=== PATIENT | male | born 2000 | race Caucasian/White ===

== ENCOUNTER 2023-12-03 15:28 | Emergency (ER) | payer BC, SELFPAY ==
[2023-12-03 15:34] VITALS: BP 146/78
--- NOTE | 2023-12-03 15:52 | ED.GENMED ---
History of Present Illness
General
Chief Complaint: Skin Surface Trauma
Source: patient
Exam Limitations: none
Time Seen by Provider: 12/03/23 15:51
Nursing documentation reviewed up to this point in time: agreed with
History of Present Illness
History of Present Illness:
This is a 23-year-old male with no past medical history presenting emergency department today with concerns of a laceration to his right middle finger. Patient reports that he was working today and throwing some things in the dumpster when he
caught his finger between the item and the dumpster and subsequently cut his finger. Patient states that he is fully able to range his finger and has no pain at this time. Patient states that the bleeding is now controlled. Patient states that he
is not up-to-date on his tetanus vaccination. Patient denies any other injuries at this time, denies any wrist or elbow pain, denies any falls. Patient is right hand dominant. Patient has no medication allergies.
Review of Systems
Review of Systems
All Other Systems: ROS reviewed and negative except as documented in HPI and ROS
Phy Exam
Physical Exam
Physical Exam:
General: Patient is well appearing and in no acute distress; non-toxic
Skin: Warm and dry, there is a 3 cm curved laceration on the posterior surface of the right 3rd finger extending to the lateral surface. Brisk capillary refill.
Head: Normocephalic, atraumatic
Eyes: Sclera non-icteric. EOMs intact.
Cardiac: Regular rate
Pulm: Normal respiratory effort
Musculoskeletal: 5/5 strength in bilateral upper extremities. No obvious deformity of the right third finger. No flexion deformity. No bony tenderness to palpation. No tendon involvement.
Neuro: CN II-XII intact, no focal neurologic deficits. Sensation intact to light touch bilaterally.
Psychiatric: Appropriate mood and affect.
Course
Orders/Labs/Results
Orders:
Orders
12/03/23 15:38
CR Hand - Right 2 Views Urgent
Comment:
Reason For Exam: lac/pain
12/03/23 16:12
Tetanus/Diphth/Acelpertussis [Adacel] 0.5 ml IM .ONCE ONE
Vital Signs
Initial and Last Documented VS:
Initial Vital Signs
Temp Pulse Resp BP Pulse Ox
98.1 F 72 16 146/78 97
12/03/23 15:34 12/03/23 15:34 12/03/23 15:34 12/03/23 15:34 12/03/23 15:34
Last Documented Vital Signs
Temp Pulse Resp BP Pulse Ox
98.1 F 72 16 146/78 97
12/03/23 15:34 12/03/23 15:34 12/03/23 15:34 12/03/23 15:34 12/03/23 15:34
Procedures
Laceration Closure
Right Middle Posterior Finger:
Status of Wound: clean
Size of Wound in cm: 3
Description of Wound Edges: sharp
Preparation: cleaned with saline
Anesthesia: 1% Lidocaine
Revision/Debridement: routine- no revision
Wound exploration: extensive cleaning of contaminated wound and explored to base- no FB
Type of Closure: single layer closure
Skin Closure Material: 4-0 prolene
Number of sutures: 7
MDM/Problems Addressed
Differential Diagnosis Includes:
ddx include finger laceration, abrasion, tendon injury
MDM/Problems Addressed:
Finger laceration:
This is a 23-year-old male with no past medical history presenting emergency department today with concerns of a laceration to his right middle finger. Patient was throwing something into the dumpster when he caught his finger between the item and
demonstrating subsequently cut his finger. Patient had his tetanus shot updated today. Patient had x-ray which was negative for any distal phalanx fracture. On physical examination, there is a 3 cm curved laceration extending from the posterior
surface of the right small finger to the lateral surface. No obvious tendon involvement, full range of motion, brisk capillary refill, sensation intact. The wound was repaired with sutures, patient tolerated procedure well. Considering the
setting of the wound was on the garbage dumpster, and the potential dirty status of the wound, patient was started prophylactically on an antibiotic. Return precautions discussed. Patient is right-hand dominant so I discussed follow-up with hand
surgery to ensure proper healing. Patient was splinted. Patient stable for discharge.
Chronic conditions affecting care:
n/a
Acute Exacerbation and/or Progression of Chronic Illness:
n/a
*Pulse Oximetry
Patient hypoxic: no
*Critical Care Note
Total Time (30-74mins, 75-104mins- exclusive of procedures): Not Applicable
Data Reviewed
Review of Other/Old Records Reveals: Records (Reviewed ER physician documentation from 03/23/2018, patient was seen for upper abdominal pain) and Discharge Summary (Discharge summary [facility] to review )
Source: patient and records
Prescriptions/Medications Considered But Not Given:
n/a
Further Testing Considered But Not Given:
n/a
Patient Management
Escalation/DeEscalation of care consider admission/obs:
Admit not indicated, patient stable for discharge, reviewed case with my attending Dr. Berumen.
ED Attending Note
-
Portions of this chart may have been created with voice recognition software.� Occasional wrong word or��sound alike� substitutions may have occurred due to the inherent limitations of voice recognition software.
Discharge Plan
Departure
Patient Disposition: Home (Routine Discharge)
Date of Disposition: 12/03/23
Time of Disposition: 17:39
Patient with high blood pressure during this ER visit?: Yes
Condition: Good
Discharge Problem:
Laceration of finger
Instructions: Wound Care (DC), Laceration Repair With Stitches (DC), BLOOD PRESSURE
Prescriptions:
New
amoxicillin-pot clavulanate 875-125 mg tablet
1 tab PO BID 5 Days Qty: 10 0RF
Referrals:
Morris Bullock MD [Active] - Call in 1-3 days for appt
Elizabeth Albarran PA-C [Family Provider] -
Activity Restrictions/Additional Instructions:
Please report to your primary care provider, emergency department, urgent care to have your stitches removed in 10 to 12 days.
Please keep the wound dry for 24 to 48 hours. After this time, you can let warm soapy water run over the wound.
I highly recommend following up with the hand surgeon. You can call the attached number to schedule follow-up appointment. It important to ensure that the wound is healing as expected and that your function remains intact.
Augmentin, an antibiotic, has been sent to your pharmacy. Please take 1 tablet twice daily for 5 days.
Please follow-up with your primary care provider
Interventions
Interventions:
*Risk Screen - Suicide Last Done: 12/03/23 15:34
*General Assessment Last Done: 12/03/23 15:34
*Neglect/Abuse Screening Last Done: 12/03/23 15:34
*Nursing Disposition Last Done: 12/03/23 17:56
ED-Skin Assessment Last Done: 12/03/23 15:57
Discharge Date and Time
Print Language: FINNISH
[2023-12-03] MEDS: ADACEL 0.5 ML IM (17:05)
[2023-12-03 17:56] VITALS: BP 132/67
== END 2023-12-03 17:57 | disposition home or self-care (01) ==
LOC: EMR 15:28
PROVIDERS: EMERGENCY PHYSICIAN Emergency Medicine; FAMILY PHYSICIAN Physician Assistant
DX: S61.212A Laceration without foreign body of right middle finger without damage to nail, initial encounter (principal); S61.216A Laceration without foreign body of right little finger without damage to nail, initial encounter; W45.8XXA Other foreign body or object entering through skin, initial encounter; Z23 Encounter for immunization
CPT/HCPCS: 99283; 12002; 90471; 73120; 90715